=== PATIENT | male | born 1990 ===

== ENCOUNTER 2020-06-22 10:29 | Emergency (ER) | payer OTHER ==
[~2020-06-22] VITALS: Ht 170.2 cm; Wt 104.5 kg
[2020-06-22] MEDS ORDERED: OMEP10 PO (11:13)
[2020-06-22 11:24] LABS: COVID AG,FIA SOURCE NASOPHARYNGEAL
[2020-06-22 11:28] LABS: GLUCOMETER DEV NAME(LOC) AHU.; GLUCOSE,POINT OF CARE 121 MG/DL (70-110)
[2020-06-22 12:44] VITALS: BP 151/97
== END 2020-06-22 12:52 | disposition home or self-care (01) ==
LOC: EMS 10:31
DX: Z20.828 Contact with and (suspected) exposure to other viral communicable diseases (principal)
CPT/HCPCS: 87426